=== PATIENT | female | born 1950 | race Caucasian/White ===

== ENCOUNTER 2016-12-20 11:43 | Emergency (ER) | payer MEDICARE, OTHER ==
[~2016-12-20] VITALS: Ht 172.7 cm; Wt 69.5 kg
[~2016-12-20 11:43] MED LIST: ASPI-535 PO; DOCU250C24 PO; EZET1TAB33 PO; GLIP10TA95 PO; LISI10TA2 PO; MTF1000T PO; SITA25TA3 PO; SMV40T PO
[2016-12-20 11:58] VITALS: Ht 172.7 cm; Wt 69.5 kg
[2016-12-20] MEDS ORDERED: morphine 10 MG INJ IM ONE (12:00)
[2016-12-20] MEDS ORDERED: CANA1TAB4 PO (12:54)
[2016-12-20] MEDS ORDERED: EVOL140S SQ (12:55)
[2016-12-20] MEDS ORDERED: DULA0.75 SQ (12:56)
--- NOTE | 2016-12-20 13:33 | RADRPT ---
PROCEDURE: Left knee series. CLINICAL INDICATION: Left knee pain after trauma TECHNIQUE: Three views of the left knee. COMPARISON: None available FINDINGS: There is normal mineralization and alignment of the left knee. There is a well corticated linear ca lcification adjacent to the lateral distal humerus which may represent small avulsed fragment, thoug h is likely chronic calcification. There is a questionable vertically oriented lucency through the patella seen only on the tunnel view which is likely artifactual in nature. There is no definitive fracture or dislocation. . There is a [id number] joint effusion with questionable hemarthro sis.. Peripheral atherosclerotic calcifications are present. IMPRESSION: 1. Suggested vertically oriented lucency through the patella seen only on the AP tunnel view which may be artifactual in nature. In addition, there is suggestion of a cortical break in the distal me dial femur. There is also well corticated fragment adjacent to the distal lateral femur, likely rel ated to prior chronic injury. There is a moderate joint effusion with questionable hemarthrosis. G iven multiple questionable findings, CT of the left knee is recommended for further evaluation. 2. Peripheral atherosclerotic vascular disease RPTAT: AA .Evgeny Ruelas MD, Date Time Electronically viewed and signed by .Evgeny Ruelas MD, on 12/20/2016 13:32 .B/
--- NOTE | 2016-12-20 13:34 | RADRPT ---
PROCEDURE: XR Femur. CLINICAL INDICATION: Left femur pain after trauma TECHNIQUE: AP and lateral views of the left proximal femur were obtained. COMPARISON: No prior studies are available for comparison. FINDINGS: The left knee is not included on the study. The proximal left femur is intact. There is no evidenc e of fracture or dislocation. Peripheral atherosclerotic calcifications are present. The soft tissu es are otherwise within normal limits. IMPRESSION: 1. No evidence of acute fracture in the proximal and mid femur. Please see knee series for evaluat ion of the distal femur. 2. Peripheral atherosclerotic vascular disease. RPTAT: AA .Evgeny Ruelas MD, MD Date Time Electronically viewed and signed by .Evgeny Ruelas MD, on 12/20/2016 13:33 .B/
--- NOTE | 2016-12-20 13:35 | RADRPT ---
PROCEDURE: Left hip series. CLINICAL INDICATION: Left hip series after trauma TECHNIQUE: 2 views of the left hip were performed. COMPARISON: None. FINDINGS: There is normal mineralization and alignment of the bones of the left hip. There is no evidence of acute fracture or dislocation. There are mild degenerative changes of the left femoral acetabular j oint.. Peripheral atherosclerotic calcifications are present. The soft tissues are otherwise withi n normal limits . IMPRESSION: 1. No evidence of acute fracture or dislocation. 2. Peripheral atherosclerotic vascular disease. 3. Mild degenerative change of the left hip. RPTAT: AA .Evgeny Ruelas MD, MD Date Time Electronically viewed and signed by .Evgeny Ruelas MD, MD on 12/20/2016 13:35 .B/
--- NOTE | 2016-12-20 14:58 | ERD ---
ER Documentation Chief Complaint Date/Time DATE: 12/20/16 TIME: 14:56 Chief Complaint slip, ground level fall R knee pain HPI This is a 66-year-old female who presents to the emergency room for evaluation of left-sided knee pain. This patient did have a ground-level fall with no loss of consciousness or no head injury. She is complaining of pain in her left knee and states her left knee is swollen. She is unable to ambulate. The patient denies any numbness or tingling in the lower extremity and was brought to the ER by a months for further evaluation. She describes her pain as a sharp pain worse with any type of movement. ROS All systems reviewed and are negative except as per history of present illness. Medications Home Meds Reported Medications Dulaglutide (Trulicity) 0.75 Mg/0.5 Ml Pen.injctr, 0.75 MG SQ EVERY Friday12/20/16 Evolocumab (Repatha Syringe) 140 Mg/1 Ml Syringe, 140 MG SQ EVERY OTHER Fri12/20/16 Canagliflozin/Metformin HCl (Invokamet 150-1,000 mg Tablet) 1 Each Tablet, 1 EACH PO WITH BREAKFAST DINNE, #60 TAB 12/20/16 Glipizide* (Glucotrol*) 10 Mg Tablet, 10 MG PO DAILY 08/08/13 Lisinopril* (Lisinopril*) 10 Mg Tablet, 10 MG PO DAILY 08/08/13 Aspirin Ec (Aspir 81) 81 Mg Tablet.dr, 81 MG PO DAILY 08/08/13 Discontinued Reported Medications Docusate Sodium* (DSS*) 250 Mg Capsule, 250 MG PO TID 08/08/13 Ezetimibe-Simvastatin (Vytorin) 1 Tab Tablet, 1 TAB PO DAILY 08/08/13 Simvastatin (Simvastatin) 40 Mg Tablet, 40 MG PO DAILY 08/08/13 Sitagliptin* (Januvia*) 25 Mg Tablet, 25 MG PO DAILY 08/08/13 Metformin* (Glucophage*) 1,000 Mg Tablet, 1000 MG PO BID 08/08/13 Allergies Allergies: Coded Allergies: No Known Allergy (Unverified , 12/20/16) PMhx/Soc History of Surgery: No Anesthesia Reaction: No Hx Neurological Disorder: No Hx Respiratory Disorders: No Hx Cardiac Disorders: No Hx Psychiatric Problems: No Hx Miscellaneous Medical Probl: No Hx Alcohol Use: No Hx Substance Use: No Hx Tobacco Use: No Smoking Status: Never smoker Physical Exam Vitals Vital Signs Date Time Temp Pulse Resp B/P Pulse Ox O2 Delivery O2 Flow Rate FiO2 12/20/16 11:58 98.5 81 15 153/65 95 Physical Exam INITIAL VITAL SIGNS: Reviewed by me GENERAL: The patient is well developed and appropriate for usual state of health in no apparent distress HEENT: Pupils equal, round, and reactive to light. EOMI. There is no scleral icterus. NECK: C-spine is soft and supple, there is no meningismus. There is no cervical lymphadenopathy. LUNGS: Clear to auscultation bilaterally. There are no rales, wheezes or rhonchi. HEART: Regular rate and rhythm, no murmurs, clicks, rubs or gallops. ABDOMEN: Soft, non-tender, non-distended. There are bowel sounds in all four quadrants. No rebound or guarding. EXTREMITIES: Soft tissue swelling noted over the left patellar joint, minimal range of motion secondary to pain, there is no peripheral cyanosis or edema. No focal swelling or erythema. NEUROLOGICAL: The patient moves all four extremities with 5/5 strength. Cranial nerves II - XII are intact. Normal gait. Alert and oriented SKIN: There is no apparent rash or petechiae. HEME/LYMPHATIC: There is no evidence of excessive bruising or lymphedema. PSYCHIATRIC: The patient does not appear anxious or depressed. Results 24 hrs Current Medications Medications (Trade) Dose Ordered Sig/Kajal Route PRN Reason Start Time Stop Time Status Last Admin Dose Admin Morphine Sulfate (morphine) 4 mg ONCE ONCE IM 12/20/16 12:00 12/20/16 12:01 DC 12/20/16 12:09 Procedures/MDM X-ray Knee 3V Interpreted by me: Bones: 1. Suggested vertically oriented lucency through the patella seen only on the AP tunnel view which may be artifactual in nature. In addition, there is suggestion of a cortical break in the distal medial femur. There is also well corticated fragment adjacent to the distal lateral femur, likely related to prior chronic injury. There is a moderate joint effusion with questionable hemarthrosis. Given multiple questionable findings, CT of the left knee is recommended for further evaluation. 2. Peripheral atherosclerotic vascular disease Joints: No dislocation Foreign body: None X-ray Femur 2V Interpreted by me: Bones: Possible distal femur fracture Joints: No dislocation Foreign body: None X-ray Hip 2V Interpreted by me: Bones: No fracture Joints: No dislocation Foreign body: None CT left lower extremity: Pending at this time This 66-year-old female presents to the emergency room for evaluation of left knee pain after a ground-level fall. This patient had x-rays of her left hip, left femur, left knee. Left knee x-ray and femur x-ray demonstrated possible distal femur fracture. CT of the left lower extremity was obtained and is pending at this time. This patient's pain is controlled with morphine. This patient will be signed out to oncoming physician, Dr. nielson for further evaluation and possible admission with orthopedics consult depending on patient' s CAT scan findings. Departure Diagnosis: Primary Impression: Patellar fracture Additional Impression: Knee pain Condition: RIP Lee DO Dec 20, 2016 14:58
[2016-12-20] MEDS ORDERED: OXYCODONE/ACETAMINOPHEN (10/325) TAB PO ONE (16:00)
--- NOTE | 2016-12-20 16:01 | RADRPT ---
PROCEDURE: CT of the left knee without contrast CLINICAL INDICATION: Trauma with left knee pain TECHNIQUE: CT scan of the left knee was performed on a [employer] 64-slice scanner. No IV con trast was administered. Coronal and sagittal reformatted images were obtained from the axial source images. The CTDI is 18.37 mGy and the total exam DLP equals 563.9 mGy-cm. Images were reviewed on a high-resolution PACS workstation. COMPARISON: Plain films from 12/20/2016 FINDINGS: Diffuse osteopenia is seen. A nondisplaced fracture of the medial tibial plateau seen with intra-ar ticular extension. No other definite fracture is seen. No dislocation is seen. A moderate size howell prapatellar joint effusion is seen. Tricompartment osteophytosis is seen. Mild joint space narrowi ng in the medial compartment is seen. Chondrocalcinosis in the lateral compartment is seen. Vascula r calcifications are identified. Soft tissue swelling at the fracture site is seen. Slight bucklin g of the patellar tendon is seen. IMPRESSION: 1. Nondisplaced fracture of the medial tibial plateau with intra-articular extension. 2. Moderate size suprapatellar joint effusion. RPTAT: HPNM Physician Leilani Date Time Electronically viewed and signed by Physician Leilani on 12/20/2016 16:00 /
[2016-12-20] MEDS ORDERED: OXYC-279 PO (17:44)
[2016-12-20 18:22] VITALS: BP 160/81; PULSE 84; RESP 15; TEMP 98.9
== END 2016-12-20 18:25 | disposition home or self-care (01) ==
LOC: E/R 11:43
DX: S82.002A Unspecified fracture of left patella, initial encounter for closed fracture (principal); W01.0XXA Fall on same level from slipping, tripping and stumbling without subsequent striking against object, initial encounter; Y92.9 Unspecified place or not applicable; Z79.82 Long term (current) use of aspirin; Z79.84 Long term (current) use of oral hypoglycemic drugs
CPT/HCPCS: 29505; 73510; 73550; 73562; 73700; 96372; 99285; J2270